=== PATIENT | female | born 1955 | race Hispanic/Latino ===

== ENCOUNTER → 2018-07-18 | Outpatient (CLI) | payer OTHER ==
[~2018-07-18] MED LIST: DIATR MEGLU/DIATRIZOATE SODIUM 30 ML BOTTLE ONE; LIDOCAINE HCL 2% VISCOUS 15 ML UDCUP ONE
== END | disposition home or self-care (01) ==
LOC: RAH 09:48
PROVIDERS: ATTEND Internal Medicine
DX: Z46.59 Encounter for fitting and adjustment of other gastrointestinal appliance and device (principal)
CPT/HCPCS: 43752; Q9963

== ENCOUNTER → 2018-07-24 | Outpatient (CLI) | payer OTHER ==
--- NOTE | 2018-07-24 11:40 | NUR ---
DUBHOFF PLACEMENT DONE UNDER FLUOROSCOPY PROCEDURE PERFORMED BY DR COOL . DUBHOFF PLACEMENT DONE UNDER FLUOROSCOPY TO LEFT NARE AND PATIENT TOLERATED PROCEDURE WELL. PLACEMENT CONFIRMED TO THE DUODENUM BY BARIUM CONTRAST AND FLUOROSCOPY IMAGES. END OF PROCEDURE AT 1150. [facility] DISCHARGED VIA STRETCHER. NO C/O PAIN.
== END | disposition home or self-care (01) ==
LOC: RAH 09:11
PROVIDERS: ATTEND Internal Medicine
DX: Z46.59 Encounter for fitting and adjustment of other gastrointestinal appliance and device (principal)
CPT/HCPCS: 43752; Q9963